=== PATIENT | female | born 1970 | race Caucasian/White ===

== ENCOUNTER 2017-09-18 06:08 | Day surgery (SDC) | payer OTHER ==
[2017-09-10 14:21] VITALS: BMI 26.6
[2017-09-18] MEDS ORDERED: ceFAZolin SODIUM 1 GM VIAL ONE ×2 (07:08→07:29)
[2017-09-18] MEDS ORDERED: GENTAMICIN SO4 80 MG/2 ML VIAL ONE (07:09)
[2017-09-18] MEDS ORDERED: BUPIVACAINE HCL/PF 0.5% (5MG/ML) 10 ML VIAL ONE (07:14)
[2017-09-18] MEDS ORDERED: LIDOCAINE 1%/EPI 1:100000 (20 ML MULTI DOSE VIAL) ONE ×2 (07:14→07:28)
[2017-09-18] MEDS ORDERED: PROPOFOL 20 ML ONE ×2 (07:26)
[2017-09-18] MEDS ORDERED: SUCCINYLCHOLINE CHLORIDE 200 MG/10 ML VIAL ONE (07:26)
[2017-09-18] MEDS ORDERED: MIDAZOLAM HCL 2 MG/2 ML SINGLE DOSE VIAL ONE (07:26)
[2017-09-18] MEDS ORDERED: fentaNYL CITRATE 250 MCG/5 ML VIAL ONE (07:26)
[2017-09-18] MEDS ORDERED: LIDOCAINE HCL 1%, 10 MG/ML (20ML VIAL) ONE ×2 (07:28→07:29)
[2017-09-18] MEDS ORDERED: EPINEPHrine 1:1,000 1 MG/1 ML - 30ML VIAL (INJECTION) ONE (07:28)
[2017-09-18] MEDS ORDERED: LIDOCAINE HCL 2% JELLY (5 ML/TUBE) ONE (07:29)
[2017-09-18] MEDS ORDERED: LIDOCAINE HCL/PF 2% SDV 5ML VIAL ONE (07:29)
[2017-09-18] MEDS ORDERED: DEXAMETHASONE SOD PHOSPHATE 4 MG/1 ML VIAL ONE (07:29)
[2017-09-18] MEDS ORDERED: ONDANSETRON 4 MG/2 ML VIAL ONE ×2 (07:29→11:07)
[2017-09-18] MEDS ORDERED: HALOPERIDOL LACTATE 5 MG/ML ONE (07:32)
[2017-09-18] MEDS ORDERED: PROMETHAZINE HCL 25 MG/1 ML VIAL ONE (09:56)
[2017-09-18] MEDS ORDERED: oxyCODONE HCL 5 MG TABLET PO PRN ×2 (10:20)
[2017-09-18] MEDS ORDERED: ONDANSETRON 4 MG/2 ML VIAL IVPUSH PRN (10:20)
[2017-09-18] MEDS ORDERED: PROMETHAZINE HCL 25 MG/1 ML VIAL IVPUSH PRN (10:20)
[2017-09-18] MEDS ORDERED: KETOROLAC TROMETHAMINE 30 MG/1 ML VIAL ONE (10:24)
[2017-09-18] MEDS ORDERED: LACTATED RINGERS SOLUTION 1,000 ML IV SCH (10:30)
[2017-09-18] MEDS ORDERED: KETOROLAC TROMETHAMINE 30 MG/1 ML VIAL IVPUSH ONE (10:37)
[2017-09-18] MEDS ORDERED: oxyCODONE HCL 5 MG TABLET ONE (12:29)
[2017-09-18 12:45] VITALS: TEMP 98.7
[2017-09-18 13:27] VITALS: BP 119/76; PULSE 88
--- NOTE | 2017-09-20 08:01 | OP ---
DATE OF OPERATION: 09/18/2017 SURGEON: Zeferino Woodruff MD RELATIONSHIP ADVISOR SURGEON: MARY ANN Grier PREOPERATIVE DIAGNOSES: 1. Bilateral acquired chest wall deformity status post bilateral mastectomy. 2. Personal history of breast carcinoma. 3. 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 4. Malposition of breast implants post mastectomy. POSTOPERATIVE DIAGNOSES: 1. Bilateral acquired chest wall deformity status post bilateral mastectomy. 2. Personal history of breast carcinoma. 3. 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 4. Malposition of breast implants post mastectomy. PROCEDURES: 1. Right breast reconstruction utilizing other technique. 2. Left breast reconstruction utilizing other technique. 3. Right breast capsulotomy, removal and replacement of a right breast implant. 4. Left breast capsulotomy, removal and replacement of left breast implant. 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 The right side showed malposition of the right breast implant. The risks and benefits of surgical versus nonsurgical, alternatives, as well as the material complications of the procedures as above were described to the patient on multiple occasions preoperatively. She was treated medically for the capsular contracture without good response. She agreed to the planned procedure. PROCEDURE IN DETAIL: The patient was taken to the operating room, and after induction of general anesthesia in the supine position, the markings, which were made I in a standing position preoperatively for outlined of the procedure, were carried out with the patient's knowledge. At this point, after sterile prepping and draping and sterile draped placed in the usual fashion. Attention was turned to the mastectomy scars. At this point, the mastectomy scars were injected with 1% local lidocaine anesthesia with 1:100,000 epinephrine along the course of their incisions. On examination, the breasts showed significant contracture and palpable distortion due to the capsular contraction of the left breast as well as the malposition of the right breast. After allowing topical anesthesia and hemostasis, the area of the abdominal wall also prepped. An incision was planned in the lateral flank for the area for harvested reconstructed tissue. Attention was then turned to the right breast. Incision was made down through the skin into the subcutaneous tissue down to the deep capsule. The capsule on the right breast wound was opened and capsulotomy performed. The implant was removed and sent for pathologic diagnosis. Copious irrigation and capsulotomy was performed in the pocket to accept the new implant. Hemostasis was meticulously obtained throughout, and copious irrigation of the pocket with triple antibiotic solution was carried out. The exact same procedure was carried out on the left breast by incising the mastectomy scar down through the skin and subcutaneous tissues opening the tight capsule on the inferior pole of the breast and removing the implant. These implants were both sent for pathologic diagnosis. The capsule itself appeared to be very thick in the anterior surface and the central portion of the capsule. This capsule was excised and also scored using the electrocautery down through the capsule itself, which was shown to be thickened and then into the subcutaneous tissue to release the tightness of the capsule itself. Portions of the capsule were removed and sent for pathologic diagnosis. Copious irrigation of the pocket with triple antibiotic solution was carried out. Multiple areas were incised along the capsule to release. At this point, after copious irrigation again with triple antibiotic solution, attention was turned to the abdomen. Incision was made down through the skin to the subcutaneous tissue through the subcutaneous tissue down to the underlying abdominal wall and rectus muscles. Tissue was then harvested from the area above the rectus muscle both medially and laterally along the lateral wall and transferring the tissue to the back table. This tissue was cleansed, prepared, and readied for reconstructive purposes. Attention was turned back to the chest wall. After soaking in antibiotic solution for approximately 30 minutes, the tissue was transferred to the right and left breast independently placing the tissue in the medial, superior, and inferior poles of the left breast and likewise in the right breast symmetrically. This tissue shows reinforcement of the weakened tissues by the capsulectomy and capsulotomy. After copious irrigation of the wound, an implant was chosen. At this point, a Natrelle Inspira Soft Touch breast implant style SSF 450 mL was chosen for the right breast pocket. This was placed into the pocket using a Townsend Funnel and a no-touch technique. The exact same procedure was carried out symmetrically in the left breast also placing the same implant on the left side with the no-touch technique and the Townsend Funnel. Once the implants were in place, the capsules were repaired and the pocket adjusted to accept the new implant. This was closed using 3-0 PDS suture in a running watertight fashion after injection of other posterior capsule with Marcaine and the soft tissue for reconstruction. A 3-layered closure was carried out by also enclosing the deep dermis and then a subcuticular suture with 4-0 Biosyn. Good shape and contour was seen in the sitting position. Both arms were positioned, and the patient showed good symmetry at the end of the procedure. All wounds were dressed sterilely with donor site being closed with interrupted and running sutures. Dermabond and Steri-Strips dressings were placed. The patient was placed into a Surgi-Bra and compressive dressing. She tolerated the procedure well. She was awakened, extubated, and transferred to the recovery room in satisfactory condition. ZEFERINO WOODRUFF M.D. [id number]
--- NOTE | 2017-09-22 10:27 | PATH ---
Surgical Pathology Report Patient Name: ARJUN GRAY Med. Rec. #: [id number] /Age/Gender: 1970 (Age: 47) / F Account: [id number] Location: [facility] Taken: 09/19/2017 Received: 09/19/2017 Reported: 09/22/2017 Physicians: Rosales Woodruff Specimen(s) Received A: RIGHT AND LEFT BREAST IMPLANT B: RIGHT BREAST CAPSULE C: LEFT BREAST CAPSULE Clinical History History of breast cancer, capsular contracture Final Diagnosis A. 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 B. SOFT TISSUE, RIGHT BREAST, EXCISION: BENIGN FIBROUS TISSUE CONSISTENT WITH BREAST IMPLANT CAPSULE C. SOFT TISSUE, LEFT BREAST, EXCISION: BENIGN FIBROUS TISSUE CONSISTENT WITH BREAST IMPLANT CAPSULE, WITH MILD CHRONIC INFLAMMATION. Electronically Signed Yamil Teague M.D. Gross Description A. Received fresh labeled "right and left breast implant," are 2 clear, rubbery breast implants averaging 13 cm in diameter and 3.5 cm in depth. No soft tissue is present. No sections are submitted, gross only. B. Received in formalin labeled "right breast capsule," is a 6.4 x 1.6 x 0.2 cm portion of apple, irregular fibrous tissue, consistent with a fibrous capsule. No definitive masses are identified. Scalloper sections are submitted in one cassette. C. Received in formalin labeled "left breast capsule," is a 4.5 x 2.3 x 0.3 cm apple, irregular portion of fibrous tissue, consistent with a fibrous capsule. No definitive masses are identified. Scalloper sections are submitted in one cassette. /09/19/2017 saudi09/19/2017
== END 2017-09-18 13:31 | disposition home or self-care (01) ==
LOC: FASU 06:08
PROVIDERS: ATTEND Plastic Surgery
PROC: 0HRV0JZ Replacement of Bilateral Breast with Synthetic Substitute, Open Approach (ICD-10-PCS; 2017-09-18)
PROC: 0HPU0JZ Removal of Synthetic Substitute from Left Breast, Open Approach (ICD-10-PCS; 2017-09-18)
PROC: 0HPT0JZ Removal of Synthetic Substitute from Right Breast, Open Approach (ICD-10-PCS; 2017-09-18)
PROC: 0HUU0JZ Supplement Left Breast with Synthetic Substitute, Open Approach (ICD-10-PCS; 2017-09-18)
PROC: 0HUT0JZ Supplement Right Breast with Synthetic Substitute, Open Approach (ICD-10-PCS; 2017-09-18)
PROC: 0HRV07Z Replacement of Bilateral Breast with Autologous Tissue Substitute, Open Approach (ICD-10-PCS; principal; 2017-09-18 08:15)
PROC: 0HNV0ZZ Release Bilateral Breast, Open Approach (ICD-10-PCS; 2017-09-18 08:15)
DX: M95.4 Acquired deformity of chest and rib (principal); Z90.13 Acquired absence of bilateral breasts and nipples; Z85.3 Personal history of malignant neoplasm of breast; T85.41XA Breakdown (mechanical) of breast prosthesis and implant, initial encounter; T85.42XA Displacement of breast prosthesis and implant, initial encounter; Y83.8 Other surgical procedures as the cause of abnormal reaction of the patient, or of later complication, without mention of misadventure at the time of the procedure; Y92.89 Other specified places as the place of occurrence of the external cause
CPT/HCPCS: 84703; 88300-TC; 88304-TC; 94760